=== PATIENT | female | born 1980 | race Two or more races ===

== ENCOUNTER 2023-10-03 17:28 | Emergency (ER) | payer OTHER ==
[~2023-10-03] VITALS: Ht 162.6 cm; Wt 93.4 kg
[2023-10-03] MEDS ORDERED: ATORVASTATIN CA10 MG PO (18:07)
[2023-10-03] MEDS ORDERED: PREGABALIN200 MG PO (18:07)
[2023-10-03] MEDS ORDERED: VIMPAT200 MG PO (18:08)
[2023-10-03] MEDS ORDERED: PANTOPRAZOLE SO40 MG PO (18:08)
[2023-10-03] MEDS ORDERED: METAXALONE800 MG PO (18:08)
[2023-10-03] MEDS ORDERED: TOPIRAMATE200 MG (18:08)
[2023-10-03] MEDS ORDERED: VITAMIN D31250 MCG PO (18:08)
[2023-10-03] MEDS ORDERED: PENTOXIFYLLINE400 MG PO (18:08)
[2023-10-03] MEDS ORDERED: FAMOTIDINE40 MG PO (18:08)
[2023-10-03] MEDS ORDERED: FERROUS SULFAT325 MG PO (18:09)
[2023-10-03 21:14] LABS: HEMATOCRIT 28.9 % (36.0-45.00); HEMOGLOBIN 8.9 g/dL (12.0-15.00); MEAN CELL VOLUME 62.4 fL (80.00-100.00); MEAN CORPUSCULAR HEMOGLOBIN 19.2 pg (27.00-32.0); MEAN CORPUSCULAR HGB CONC 30.6 g/dl (32.0-36.0); PLATELET COUNT 340 K/uL (150-450); RED BLOOD COUNT 4.63 M/uL (4.00-6.00); RED CELL DISTRIBUTION WIDTH 33.2 % (11.5-14.5)
[2023-10-03 21:38] LABS: ALBUMIN 3.6 gm/dL (3.4-5.0); BILIRUBIN TOTAL 0.32 mg/dL (0.3-1.2); CALCIUM 9.8 mg/dL (8.5-10.1); CREATININE SERUM 0.79 mg/dL (0.55-1.02); GFR 78.7; GLOBULINA 3.9 G/DL (2.4-3.5); POTASSIUM 3.5 mEq/L (3.5-5.1); TOTAL PROTEIN 7.5 gm/dL (6.4-8.2)
[2023-10-03 21:49] LABS: PH,URINE 6.5 (5.0-8.0); URINE APPEARANCE Clear; URINE BILIRRUBIN Negative (NEGATIVE); URINE BLOOD Large; URINE COLOR Yellow; URINE GLUCOSE Negative (NEGATIVE); URINE LEUKOCYTE Trace; URINE NITRATE Negative; URINE PROTEIN Trace (NEGATIVE); URINE UROBILINOGEN 0.2 E.U./dl
[2023-10-03 21:52] LABS: URINE BACTERIA 391.8 uL (0.0-1933); URINE RBC 1559.8 uL (0.0-20.8); URINE WBC 36.4 uL (0.0-23.2)
== END 2023-10-04 00:33 | disposition home or self-care (01) ==
LOC: ER 17:29
PROVIDERS: Emergency Medicine
DX: R53.83 Other fatigue (principal); N93.8 Other specified abnormal uterine and vaginal bleeding; Z20.822 Contact with and (suspected) exposure to COVID-19; R10.84 Generalized abdominal pain